=== PATIENT | male | born 1980 | race Hispanic/Latino ===

== ENCOUNTER 2019-07-21 03:40 | Inpatient (IN) | payer SELFPAY ==
[2019-07-21 04:48] LABS: Basophils # (Auto) 0.1 K/mm3 (0.0-0.1); Basophils % (Auto) 0.7 % (0.0-1.8); Eosinophils # (Auto) 0.1 K/mm3 (0.0-0.4); Eosinophils % (Auto) 0.5 % (0.0-4.3); Hematocrit 44.9 % (35.5-45.6); Hemoglobin 15.5 gm/dl (11.8-15.2); Lymphocytes # (Auto) 2.4 K/mm3 (1.2-5.4); Lymphocytes % (Auto) 20.5 % (13.4-35.0); Mean Corpuscular HGB Conc 35 % (32-34); Mean Corpuscular Volume 92 fl (84-94); Monocytes # (Auto) 0.9 K/mm3 (0.0-0.8); Monocytes % (Auto) 7.5 % (0.0-7.3); Platelet Count 398 K/mm3 (140-440); Red Blood Count 4.86 M/mm3 (3.65-5.03); Red Cell Distribution Width 13.6 % (13.2-15.2)
[2019-07-21 05:10] LABS: BUN/Creatinine Ratio 19; Blood Urea Nitrogen 13 mg/dL (9-20); Calcium 10.3 mg/dL (8.4-10.2); Hemolysis Index 9
[2019-07-21 05:17] LABS: Bilirubin,Urine NEG (Negative); Blood,Urine NEG (Negative); Color,Urine Amber (Yellow); Mucus,Urine 3+ /HPF; Urobilinogen,Urine < 2.0 mg/dL (<2.0)
[2019-07-21 06:07] LABS: Benzodiazepines Screen,Urine PRESUMPTIVE NEGATIVE; Cannabinoid Screen,Urine PRESUMPTIVE NEGATIVE; Cocaine Screen,Urine PRESUMPTIVE NEGATIVE; Methadone Screen,Urine PRESUMPTIVE NEGATIVE; Opiate Screen,Urine PRESUMPTIVE NEGATIVE
[2019-07-21 06:25] LABS: Amphetamine Screen,Urine PRESUMPTIVE POSITIVE
[2019-07-21] MEDS ORDERED: SODIUM CHLORIDE 0.9% 1000 ML 2,000 ML IV ONE (06:33)
[2019-07-21] MEDS ORDERED: SODIUM CHLORIDE 0.9% 1000 ML 1,000 ML IV ONE (06:33)
[2019-07-21] MEDS ORDERED: KETOROLAC 30 MG/1 ML INJ IV ONE (06:33)
--- NOTE | 2019-07-21 06:35 | Emergency Department Report ---
ED General Adult HPI - General Chief complaint: Psych Stated complaint: HEARING VOICES/MH EVAL Time Seen by Provider: 07/21/19 06:06 Source: patient, EMS (EMS documentation not available at this time.), RN notes reviewed Mode of arrival: Ambulatory Limitations: Other (patient disorganize and is a poor historian) - History of Present Illness Initial comments: This is a 39-year-old gentleman. This patient is not known to myself previously. His primary care doctor is not known, and his past medical history includes bipolar, schizophrenia, chronic back pain. He presents to the ER today with a complaint of command hallucinations to kill himself. He also has chronic lower back pain. He also endorses dark colored urine. He is not able to describe exacerbating or relieving factors at this time. There is no complaint of headache, neck pain, chest pain, abdominal pain, shortness of breath. He is not sure if he is expressing hematuria. He has no testicular pain. Not able to describe qualitative nature of symptoms, exacerbating or relieving factors. -: Gradual Location: back Quality: other Consistency: other Improves with: other Worsens with: other - Related Data Home Medications Medication Instructions Recorded Confirmed Last Taken No Known Home Medications [No 11/01/18 11/01/18 Unknown Reported Home Medications] Allergies Allergy/AdvReac Type Severity Reaction Status Date / Time No Known Allergies Allergy Unverified 10/31/18 00:16 ED Review of Systems ROS: Stated complaint: HEARING VOICES/MH EVAL Other details as noted in HPI Constitutional: denies: fever Eyes: denies: eye discharge ENT: denies: congestion Respiratory: denies: wheezing Cardiovascular: denies: syncope Gastrointestinal: denies: abdominal pain Genitourinary: denies: testicular pain Musculoskeletal: back pain Neurological: weakness Psychiatric: suicidal thoughts ED Past Medical Hx - Past Medical History Previous Medical History?: Yes Hx Psychiatric Treatment: Yes (Bipolar, schizophrenia) Additional medical history: CHRONIC BACK PAIN - Surgical History Past Surgical History?: Yes Additional Surgical History: LEFT KNEE X2 - Social History Smoking Status: Unknown if ever smoked Substance Use Type: Cocaine - Medications Home Medications: Home Medications Medication Instructions Recorded Confirmed Last Taken Type No Known Home Medications [No 11/01/18 11/01/18 Unknown History Reported Home Medications] ED Physical Exam - General Limitations: Other (patient psychotic, and is a poor historian) General appearance: alert, in no apparent distress - Head Head exam: Present: atraumatic, normocephalic - Eye Eye exam: Present: normal appearance, EOMI. Absent: nystagmus - ENT ENT exam: Present: normal exam, normal orophraynx, mucous membranes moist, normal external ear exam - Neck Neck exam: Present: normal inspection - Respiratory Respiratory exam: Present: normal lung sounds bilaterally. Absent: respiratory distress - Cardiovascular Cardiovascular Exam: Present: regular rate, normal rhythm, normal heart sounds. Absent: bradycardia, tachycardia, irregular rhythm, systolic murmur, diastolic murmur, rubs, gallop - GI/Abdominal GI/Abdominal exam: Present: soft. Absent: distended, tenderness, guarding, rebound, rigid, pulsatile mass - Rectal Rectal exam: Present: deferred - Extremities Exam Extremities exam: Present: normal inspection, full ROM, other (2+ pulses noted in the bilateral upper and lower extremities. There is no long bony tenderness. The pelvis is stable. The muscular compartments are soft. There is no palpable cord. There is no redness, pus or streaking.). Absent: pedal edema, calf tenderness - Back Exam Back exam: Present: normal inspection, full ROM, paraspinal tenderness. Absent: tenderness - Neurological Exam Neurological exam: Present: alert, other (there is no facial droop. Tongue is midline. Extraocular movements are intact bilaterally. Walking with a steady gait. Speaking in full sentences. Normal appropriate thought content. 5 out of 5 strength in 4 extremities. Sensation is intact to light touch in 4 extremities.). Absent: motor sensory deficit - Psychiatric Psychiatric exam: Present: flat affect, suicidal ideation - Skin Skin exam: Present: warm, dry, intact, normal color. Absent: rash ED Course Vital Signs 07/21/19 07/21/19 07/21/19 04:04 04:50 07:19 Temperature 98.7 F Pulse Rate 111 H Respiratory 18 20 18 Rate Blood Pressure 160/109 [Left] O2 Sat by Pulse 98 Oximetry ED Medical Decision Making - Lab Data Result diagrams: 07/21/19 04:09 07/21/19 04:09 Vital Signs 07/21/19 07/21/19 07/21/19 04:04 04:50 07:19 Temperature 98.7 F Pulse Rate 111 H Respiratory 18 20 18 Rate Blood Pressure 160/109 [Left] O2 Sat by Pulse 98 Oximetry Lab Results 07/21/19 07/21/19 07/21/19 Range/Units 04:05 04:05 04:09 WBC (4.5-11.0) K/mm3 RBC (3.65-5.03) M/mm3 Hgb (11.8-15.2) gm/dl Hct (35.5-45.6) % MCV (84-94) fl MCH (28-32) pg MCHC (32-34) % RDW (13.2-15.2) % Plt Count (140-440) K/mm3 Lymph % (Auto) (13.4-35.0) % [place] % (Auto) (0.0-7.3) % Eos % (Auto) (0.0-4.3) % Baso % (Auto) (0.0-1.8) % Lymph # (1.2-5.4) K/mm3 [place] # (0.0-0.8) K/mm3 Eos # (0.0-0.4) K/mm3 Baso # (0.0-0.1) K/mm3 Seg Neutrophils % (40.0-70.0) % Seg Neutrophils # (1.8-7.7) K/mm3 Sodium (137-145) mmol/L Potassium (3.6-5.0) mmol/L Chloride (98-107) mmol/L Carbon Dioxide (22-30) mmol/L Anion Gap mmol/L BUN (9-20) mg/dL Creatinine (0.8-1.5) mg/dL Estimated GFR ml/min BUN/Creatinine Ratio % Glucose (75-100) mg/dL Calcium (8.4-10.2) mg/dL Total Creatine Kinase (55-170) units/L Urine Color Ila (Yellow) Urine Turbidity Slightly-cloudy (Clear) Urine pH 6.0 (5.0-7.0) Ur Specific [place] 1.023 (1.003-1.030) Urine Protein 100 mg/dl (Negative) mg/dL Urine Glucose (UA) Neg (Negative) mg/dL Urine Ketones Tr (Negative) mg/dL Urine Blood Neg (Negative) Urine Nitrite Neg (Negative) Urine Bilirubin Neg (Negative) Urine Urobilinogen < 2.0 (<2.0) mg/dL Ur Leukocyte Esterase Neg (Negative) Urine WBC (Auto) 2.0 (0.0-6.0) /HPF Urine RBC (Auto) 13.0 (0.0-6.0) /HPF Urine Mucus 3+ /HPF Salicylates < 0.3 L (2.8-20.0) mg/dL Urine Opiates Screen Presumptive negative Urine Methadone Screen Presumptive negative Acetaminophen (10.0-30.0) ug/mL Ur Barbiturates Screen Presumptive negative Ur Phencyclidine Scrn Presumptive negative Ur Amphetamines Screen Presumptive positive U Benzodiazepines Scrn Presumptive negative [place] (0.0-1.2) mmol/L Urine Cocaine Screen Presumptive negative U Marijuana (THC) Screen Presumptive negative Drugs of Abuse Note Disclamer Plasma/Serum Alcohol (0-0.07) % 07/21/19 07/21/19 07/21/19 Range/Units 04:09 04:09 04:09 WBC (4.5-11.0) K/mm3 RBC (3.65-5.03) M/mm3 Hgb (11.8-15.2) gm/dl Hct (35.5-45.6) % MCV (84-94) fl MCH (28-32) pg MCHC (32-34) % RDW (13.2-15.2) % Plt Count (140-440) K/mm3 Lymph % (Auto) (13.4-35.0) % [place] % (Auto) (0.0-7.3) % Eos % (Auto) (0.0-4.3) % Baso % (Auto) (0.0-1.8) % Lymph # (1.2-5.4) K/mm3 [place] # (0.0-0.8) K/mm3 Eos # (0.0-0.4) K/mm3 Baso # (0.0-0.1) K/mm3 Seg Neutrophils % (40.0-70.0) % Seg Neutrophils # (1.8-7.7) K/mm3 Sodium 137 (137-145) mmol/L Potassium 3.7 (3.6-5.0) mmol/L Chloride 95.5 L (98-107) mmol/L Carbon Dioxide 20 L (22-30) mmol/L Anion Gap 25 mmol/L BUN 13 (9-20) mg/dL Creatinine 0.7 L (0.8-1.5) mg/dL Estimated GFR > 60 ml/min BUN/Creatinine Ratio 19 % Glucose 135 H (75-100) mg/dL Calcium 10.3 H (8.4-10.2) mg/dL Total Creatine Kinase (55-170) units/L Urine Color (Yellow) Urine Turbidity (Clear) Urine pH (5.0-7.0) Ur Specific [place] (1.003-1.030) Urine Protein (Negative) mg/dL Urine Glucose (UA) (Negative) mg/dL Urine Ketones (Negative) mg/dL Urine Blood (Negative) Urine Nitrite (Negative) Urine Bilirubin (Negative) Urine Urobilinogen (<2.0) mg/dL Ur Leukocyte Esterase (Negative) Urine WBC (Auto) (0.0-6.0) /HPF Urine RBC (Auto) (0.0-6.0) /HPF Urine Mucus /HPF Salicylates (2.8-20.0) mg/dL Urine Opiates Screen Urine Methadone Screen Acetaminophen < 5.0 L (10.0-30.0) ug/mL Ur Barbiturates Screen Ur Phencyclidine Scrn Ur Amphetamines Screen U Benzodiazepines Scrn [place] (0.0-1.2) mmol/L Urine Cocaine Screen U Marijuana (THC) Screen Drugs of Abuse Note Plasma/Serum Alcohol < 0.01 (0-0.07) % 07/21/19 07/21/19 07/21/19 Range/Units 04:09 04:09 04:30 WBC 11.8 H (4.5-11.0) K/mm3 RBC 4.86 (3.65-5.03) M/mm3 Hgb 15.5 H (11.8-15.2) gm/dl Hct 44.9 (35.5-45.6) % MCV 92 (84-94) fl MCH 32 (28-32) pg MCHC 35 H (32-34) % RDW 13.6 (13.2-15.2) % Plt Count 398 (140-440) K/mm3 Lymph % (Auto) 20.5 (13.4-35.0) % [place] % (Auto) 7.5 H (0.0-7.3) % Eos % (Auto) 0.5 (0.0-4.3) % Baso % (Auto) 0.7 (0.0-1.8) % Lymph # 2.4 (1.2-5.4) K/mm3 [place] # 0.9 H (0.0-0.8) K/mm3 Eos # 0.1 (0.0-0.4) K/mm3 Baso # 0.1 (0.0-0.1) K/mm3 Seg Neutrophils % 70.8 H (40.0-70.0) % Seg Neutrophils # 8.3 H (1.8-7.7) K/mm3 Sodium (137-145) mmol/L Potassium (3.6-5.0) mmol/L Chloride (98-107) mmol/L Carbon Dioxide (22-30) mmol/L Anion Gap mmol/L BUN (9-20) mg/dL Creatinine (0.8-1.5) mg/dL Estimated GFR ml/min BUN/Creatinine Ratio % Glucose (75-100) mg/dL Calcium (8.4-10.2) mg/dL Total Creatine Kinase 76399 H (55-170) units/L Urine Color (Yellow) Urine Turbidity (Clear) Urine pH (5.0-7.0) Ur Specific [place] (1.003-1.030) Urine Protein (Negative) mg/dL Urine Glucose (UA) (Negative) mg/dL Urine Ketones (Negative) mg/dL Urine Blood (Negative) Urine Nitrite (Negative) Urine Bilirubin (Negative) Urine Urobilinogen (<2.0) mg/dL Ur Leukocyte Esterase (Negative) Urine WBC (Auto) (0.0-6.0) /HPF Urine RBC (Auto) (0.0-6.0) /HPF Urine Mucus /HPF Salicylates (2.8-20.0) mg/dL Urine Opiates Screen Urine Methadone Screen Acetaminophen (10.0-30.0) ug/mL Ur Barbiturates Screen Ur Phencyclidine Scrn Ur Amphetamines Screen U Benzodiazepines Scrn [place] 0.1 (0.0-1.2) mmol/L Urine Cocaine Screen U Marijuana (THC) Screen Drugs of Abuse Note Plasma/Serum Alcohol (0-0.07) % - EKG Data -: EKG Interpreted by Md EKG shows normal: sinus rhythm Rate: normal - EKG Data 07/21/19 07:47 There is no prior EKG available for comparison. The EKG shows a normal sinus rhythm, 96 bpm, normal axis, QTC 446 ms, there is motion artifact, borderline atrial enlargement, no prior for comparison, not consistent with STEMI - Radiology Data Radiology results: report reviewed, image reviewed Print Report Referring Physician: RAVEN STAUFFER Patient Name: SURAJ IVAN Date of : 1980 Sex: Male Report Date: 2019-07-21 Report Status: Finalized Findings [facility] [address] [place] [address] Cat Scan Report Signed Patient: SURAJ IVAN MR#: [id number] : 1980 Acct:[id number] Age/Sex: 39 / M ADM Date: 07/21/19 Loc: ED Attending Dr: Ordering Physician: RAVEN STAUFFER MD Date of Service: 07/21/19 Procedure(s): CT abdomen pelvis wo con Accession Number(s): [id number] cc: RAVEN STAUFFER MD CT ABDOMEN AND PELVIS WITHOUT CONTRAST HISTORY: back pain hematuria, dark colored urine. COMPARISON: None. TECHNIQUE: CT images of the abdomen and pelvis were obtained without administration of intravenous contrast. All CT scans at this location are performed using CT dose reduction for ALARA by means of automated exposure control. FINDINGS: Lungs/bones: Lung bases are clear. No acute osseous abnormality. Mild degenerative changes in the spine and pelvis. Abdomen/pelvis: There is no radiopaque urinary stone disease in the kidneys. No mass, cyst, or hydronephrosis. The liver is enlarged and steatotic. The gallbladder, spleen, pancreas, adrenals, and proximal GI tract appear unremarkable. There is a tiny fat-containing umbilical hernia. Urinary bladder is incompletely distended but otherwise unremarkable. Prostate is normal. No pelvic free fluid. No acute colonic abnormality identified. The appendix is normal. IMPRESSION: 1. No acute abnormality identified. Signer Name: Kei Rutherford MD Signed: 07/21/2019 7:00 AM Workstation Name: [id number] Transcribed By: ALLEN Dictated By: Kei Rutherford MD Electronically Authenticated By: Kei Rutherford MD Signed Date/Time: 07/21/19 0700 - Medical Decision Making Differential diagnosis, including but not limited to: Medical clearance for psychiatric placement, psychosis, depression, renal colic, AAA, rhabdomyolysis Assessment and plan: 39-year-old gentleman with primary complaint of suicidality, wanting to kill himself. On review of systems endorses acute on chronic back pain, and dark colored urine. He is afebrile with reassuring vital signs. Physical exam is fairly unremarkable except as documented. A noncontrast CT scan of the abdomen and pelvis showed no acute surgical condition. Laboratory studies demonstrate metabolic acidosis, with rhabdomyolysis, CK of 10,700. Patient is not suitable to care for himself unsupervised, and meets criteria for hospitalization based off of the aforementioned CK, and metabolic acidosis. IV fluids, bicarbonate ordered, hold orders are initiated, psychiatric consultation requested, hospital physician, Dr. arciniega to admit patient for rhabdomyolysis, metabolic acidosis, and psychiatric consultation. Critical care attestation.: If time is entered above; I have spent that time in minutes in the direct care of this critically ill patient, excluding procedure time. ED Disposition Clinical Impression: Rhabdomyolysis, Metabolic acidosis, Suicidal ideation, Psychosis Disposition: 09 OP ADMIT IP TO THIS HOSP Is pt being admited?: Yes Does the pt Need Aspirin: No Condition: Good
[2019-07-21] MEDS ORDERED: LORazepam 2 MG/ML VIAL IV NR (06:45)
--- NOTE | 2019-07-21 07:05 | Cat Scan Report ---
CT ABDOMEN AND PELVIS WITHOUT CONTRAST HISTORY: back pain hematuria, dark colored urine. COMPARISON: None. TECHNIQUE: CT images of the abdomen and pelvis were obtained without administration of intravenous co ntrast. All CT scans at this location are performed using CT dose reduction for ALARA by means of au tomated exposure control. FINDINGS: Lungs/bones: Lung bases are clear. No acute osseous abnormality. Mild degenerative changes in the sp ine and pelvis. Abdomen/pelvis: There is no radiopaque urinary stone disease in the kidneys. No mass, cyst, or hydro nephrosis. The liver is enlarged and steatotic. The gallbladder, spleen, pancreas, adrenals, and proximal GI tra ct appear unremarkable. There is a tiny fat-containing umbilical hernia. Urinary bladder is incompletely distended but otherwise unremarkable. Prostate is normal. No pelvic f ree fluid. No acute colonic abnormality identified. The appendix is normal. IMPRESSION: 1. No acute abnormality identified. Signer Name: Kei Rutherford MD Signed: 07/21/2019 7:00 AM Workstation Name: [id number]
[2019-07-21] MEDS ORDERED: SODIUM BICARB 8.4% 50 MEQ/50 ML SYRINGE IV ONE (07:45)
--- NOTE | 2019-07-21 13:33 | History and Physical Report ---
History of Present Illness Date of examination: 07/21/19 Chief complaint: Suicidal thoughts History of present illness: Patient is a 39 yo man with a history of bipolar and shizophrenia who presented to [facility] ED from home with auditory hallucinations telling himself to hurt himself. He told ED staff that he has been off his psychiatry medications for unknown amount of time and he admits to doing speed. He was anxious and was given IV ativan, now somnolent and gives no history to me. He is being admitted for Rhabdomyolysis. PMH: as hpi PSH: knee surgery SH: +tob no Etoh +illicit drugs FH: he denies ROS: unable to obtain due AMS Gen: WDWN, NAD, Awake, Alert, Orientated HEENT: NCAT, EOMI, PERRL, OP Clear Neck: supple, no adenopathy, no thyromegaly, no JVD CVS/Heart: RRR, normal S1S2, pulses present bilaterally Chest/Lungs: CTA B, Symmetrical chest expansion, good air entry bilaterally GI/Abdomen: soft, NTND, good bowel sounds, no guarding or rebound /Bladder: no suprapubic tenderness, no CVA or paraspinal tenderness Extermity/Skin: no c/c/e, no obvious rash MSK: FROM x 4 Neuro: CN 2-12 grossly intact, no new focal deficits Psych: calm Medications and Allergies Allergies Allergy/AdvReac Type Severity Reaction Status Date / Time No Known Allergies Allergy Unverified 10/31/18 00:16 Home Medications Medication Instructions Recorded Confirmed Last Taken Type No Known Home Medications [No 11/01/18 11/01/18 Unknown History Reported Home Medications] Active Meds: Active Medications Lorazepam (Ativan) 2 mg IV CARDIAC RN NR Stop: 07/21/19 23:59 Last Admin: 07/21/19 07:26 Dose: 2 mg Documented by: Exam - Constitutional Vitals: Temp Pulse Resp BP Pulse Ox 97.9 F 99 H 18 154/101 95 07/21/19 10:12 07/21/19 10:12 07/21/19 10:12 07/21/19 10:12 07/21/19 10:12 Results - Labs CBC & Chem 7: 07/21/19 04:09 07/21/19 04:09 Labs: Laboratory Last Values WBC 11.8 K/mm3 (4.5-11.0) H 07/21/19 04:09 RBC 4.86 M/mm3 (3.65-5.03) 07/21/19 04:09 Hgb 15.5 gm/dl (11.8-15.2) H 07/21/19 04:09 Hct 44.9 % (35.5-45.6) 07/21/19 04:09 MCV 92 fl (84-94) 07/21/19 04:09 MCH 32 pg (28-32) 07/21/19 04:09 MCHC 35 % (32-34) H 07/21/19 04:09 RDW 13.6 % (13.2-15.2) 07/21/19 04:09 Plt Count 398 K/mm3 (140-440) 07/21/19 04:09 Lymph % (Auto) 20.5 % (13.4-35.0) 07/21/19 04:09 [place] % (Auto) 7.5 % (0.0-7.3) H 07/21/19 04:09 Eos % (Auto) 0.5 % (0.0-4.3) 07/21/19 04:09 Baso % (Auto) 0.7 % (0.0-1.8) 07/21/19 04:09 Lymph # 2.4 K/mm3 (1.2-5.4) 07/21/19 04:09 [place] # 0.9 K/mm3 (0.0-0.8) H 07/21/19 04:09 Eos # 0.1 K/mm3 (0.0-0.4) 07/21/19 04:09 Baso # 0.1 K/mm3 (0.0-0.1) 07/21/19 04:09 Seg Neutrophils % 70.8 % (40.0-70.0) H 07/21/19 04:09 Seg Neutrophils # 8.3 K/mm3 (1.8-7.7) H 07/21/19 04:09 Sodium 137 mmol/L (137-145) 07/21/19 04:09 Potassium 3.7 mmol/L (3.6-5.0) 07/21/19 04:09 Chloride 95.5 mmol/L (98-107) L 07/21/19 04:09 Carbon Dioxide 20 mmol/L (22-30) L 07/21/19 04:09 Anion Gap 25 mmol/L 07/21/19 04:09 BUN 13 mg/dL (9-20) 07/21/19 04:09 Creatinine 0.7 mg/dL (0.8-1.5) L 07/21/19 04:09 Estimated GFR > 60 ml/min 07/21/19 04:09 BUN/Creatinine Ratio 19 % 07/21/19 04:09 Glucose 135 mg/dL (75-100) H 07/21/19 04:09 Calcium 10.3 mg/dL (8.4-10.2) H 07/21/19 04:09 Total Creatine Kinase 79392 units/L (55-170) H 07/21/19 04:09 Urine Color Ila (Yellow) 07/21/19 04:05 Urine Turbidity Slightly-cloudy (Clear) 07/21/19 04:05 Urine pH 6.0 (5.0-7.0) 07/21/19 04:05 Ur Specific [place] 1.023 (1.003-1.030) 07/21/19 04:05 Urine Protein 100 mg/dl mg/dL (Negative) 07/21/19 04:05 Urine Glucose (UA) Neg mg/dL (Negative) 07/21/19 04:05 Urine Ketones Tr mg/dL (Negative) 07/21/19 04:05 Urine Blood Neg (Negative) 07/21/19 04:05 Urine Nitrite Neg (Negative) 07/21/19 04:05 Urine Bilirubin Neg (Negative) 07/21/19 04:05 Urine Urobilinogen < 2.0 mg/dL (<2.0) 07/21/19 04:05 Ur Leukocyte Esterase Neg (Negative) 07/21/19 04:05 Urine WBC (Auto) 2.0 /HPF (0.0-6.0) 07/21/19 04:05 Urine RBC (Auto) 13.0 /HPF (0.0-6.0) 07/21/19 04:05 Urine Mucus 3+ /HPF 07/21/19 04:05 Salicylates < 0.3 mg/dL (2.8-20.0) L 07/21/19 04:09 Urine Opiates Screen Presumptive negative 07/21/19 04:05 Urine Methadone Screen Presumptive negative 07/21/19 04:05 Acetaminophen < 5.0 ug/mL (10.0-30.0) L 07/21/19 04:09 Ur Barbiturates Screen Presumptive negative 07/21/19 04:05 Ur Phencyclidine Scrn Presumptive negative 07/21/19 04:05 Ur Amphetamines Screen Presumptive positive 07/21/19 04:05 U Benzodiazepines Scrn Presumptive negative 07/21/19 04:05 [place] 0.1 mmol/L (0.0-1.2) 07/21/19 04:30 Urine Cocaine Screen Presumptive negative 07/21/19 04:05 U Marijuana (THC) Screen Presumptive negative 07/21/19 04:05 Drugs of Abuse Note Disclamer 07/21/19 04:05 Plasma/Serum Alcohol < 0.01 % (0-0.07) 07/21/19 04:09 Assessment and Plan Assessment and plan: Patient is a 39 yo man with a history of bipolar and shizophrenia who presented to [facility] ED from home with auditory hallucinations telling himself to hurt himself. He told ED staff that he has been off his psychiatry medications for unknown amount of time and he admits to doing speed. He was anxious and was given IV ativan, now somnolent and gives no history to me. He is being admitted for Rhabdomyolysis. * HR 111 bp 160/109, wbc 11.8, Ca 10.3, CPK 10,733 * UA not indicative of UTI, UDS is positive for Amphetamines * CT abd/pelvis without contrast IMPRESSION: 1. No acute abnormality identified. Rhabdomyolysis: treat with Isotonic IVFs, do serical cpk levels Acute psychosis: consult Mental health, treat with antipsychotics Suicidal Ideation: spoke with Dr. Morales, patient did express Suicidal thoughts to him but he did not 1013 patient instead he ordered ER hold and consulted Mental health Acute toxic encephalopathy due to Methamphetamines Schizophrenia: consult mental health DVT ppx sq heparin
[2019-07-21] MEDS ORDERED: ONDANSETRON 4 MG/2 ML INJ IV PRN (13:35)
[2019-07-21] MEDS ORDERED: HALOPERIDOL LACTATE 5 MG/1 ML INJ IM PRN (13:45)
[2019-07-21] MEDS ORDERED: HALOPERIDOL LACTATE 5 MG/1 ML INJ IV PRN (13:50)
[2019-07-21] MEDS ORDERED: LORazepam 2 MG/ML VIAL IV PRN (13:51)
[2019-07-21] MEDS ORDERED: QUEtiapine 200 MG TAB ONE (14:20)
[2019-07-21] MEDS: QUEtiapine 200 MG TAB PO SCH ×2 (14:21→22:59)
[2019-07-21] MEDS ORDERED: ACETAMINOPHEN 325 MG TAB ONE (14:28)
[2019-07-21] MEDS: ACETAMINOPHEN 325 MG TAB PO PRN (14:28)
[2019-07-21] MEDS: SODIUM CHLORIDE 0.9% 1000 ML 1,000 ML IV SCH (17:13)
[2019-07-22 08:19] LABS: Hematocrit 38.3 % (35.5-45.6); Mean Corpuscular HGB Conc 34 % (32-34); Mean Corpuscular Volume 93 fl (84-94); Platelet Count 332 K/mm3 (140-440); Red Blood Count 4.13 M/mm3 (3.65-5.03); Red Cell Distribution Width 13.7 % (13.2-15.2)
[2019-07-22 09:21] LABS: Alanine Aminotransferase 102 units/L (7-56); Albumin 3.5 g/dL (3.9-5); BUN/Creatinine Ratio 20; Blood Urea Nitrogen 14 mg/dL (9-20); Calcium 8.9 mg/dL (8.4-10.2); Hemolysis Index 2
[2019-07-22] MEDS: QUEtiapine 200 MG TAB PO SCH ×2 (10:37→23:06)
[2019-07-22] MEDS ORDERED: POTASSIUM CHLORIDE ER 20 MEQ TAB PO ONE ×2 (12:00→16:00)
--- NOTE | 2019-07-22 12:35 | Consultation ---
History of Present Illness - Reason for Consult Consult date: 07/22/19 Reason for consult: command SI - Chief Complaint Chief complaint: Suicidal thoughts - History of Present Psychiatric Illness Isael Lizarraga is a 39y/o male patient who is said to have come in to the hospital for command hallucinations to kill himself. During my attempted interview today, he is lying in bed. Asleep. The patient arouses minimally during interview and is unable to adequately answer questioning. The sitter at bedside attempts to awaken the patient as well but he does not respond. She says she thinks they gave him something. Will attempt interview tomorrow. PAST PSYCHIATRIC HISTORY: Unable to assess PAST MEDICAL HISTORY: Unable to assess Family Psychiatric History Unable to assess SOCIAL HISTORY Unable to assess REVIEW OF SYSTEMS Unable to assess MSE Appearance: Dressed appropriately. Unable to assess Assessment: Schizoaffective Disorder Plan Can continue Seroquel 200mg po BID Prozac 10mg po daily Doxepin 10mg po qhs Melatonin 5mg po qhs prn insomnia Sitter: Defer to primary Medical: Per primary Disposition: TBD. Will reassess the patient's mental status tomorrow. Will continue to follow Medications and Allergies Allergies Allergy/AdvReac Type Severity Reaction Status Date / Time No Known Allergies Allergy Unverified 10/31/18 00:16 Home Medications Medication Instructions Recorded Confirmed Last Taken Type No Known Home Medications [No 11/01/18 11/01/18 Unknown History Reported Home Medications] Active Meds: Active Medications Acetaminophen (Tylenol) 650 mg PO Q6H PRN PRN Reason: Non Cardiac Pain or Temp>100.5 Last Admin: 07/21/19 14:28 Dose: 650 mg Documented by: Haloperidol Lactate (Haldol) 5 mg IV Q6H PRN PRN Reason: Agitation Heparin Sodium (Porcine) (Heparin) 5,000 unit SUB-Q Q12HR CELESTE Sodium Chloride (Nacl 0.9% 1000 Ml) 1,000 mls @ 125 mls/hr IV DIRECT CELESTE Last Admin: 07/21/19 17:13 Dose: 125 mls/hr Documented by: Lorazepam (Ativan) 2 mg IV ONCE PRN PRN Reason: Anxiety Ondansetron HCl (Zofran) 4 mg IV Q4H PRN PRN Reason: Nausea And Vomiting Quetiapine Fumarate (Seroquel) 200 mg PO BID CELESTE Last Admin: 07/22/19 10:37 Dose: 200 mg Documented by: Mental Status Exam - Vital signs Last Vital Signs Temp 97.9 F 07/22/19 06:48 Pulse 80 07/22/19 06:48 Resp 16 07/22/19 06:48 BP 133/84 07/22/19 06:48 Pulse Ox 94 07/22/19 06:48 Results Result Diagrams: 07/22/19 07:24 07/22/19 07:24 Abnormal lab results 07/22/19 Range/Units 07:24 Potassium 3.2 L (3.6-5.0) mmol/L Carbon Dioxide 21 L (22-30) mmol/L Creatinine 0.7 L (0.8-1.5) mg/dL Glucose 142 H (75-100) mg/dL AST 91 H (5-40) units/L ALT 102 H (7-56) units/L Total Creatine Kinase 2811 H (55-170) units/L Total Protein 5.9 L (6.3-8.2) g/dL Albumin 3.5 L (3.9-5) g/dL All other labs normal.
--- NOTE | 2019-07-22 14:51 | Progress Note ---
Assessment and Plan Assessment and plan: Patient is a 39 yo man with a history of bipolar and shizophrenia who presented to [facility] ED from home with auditory hallucinations telling himself to hurt himself. He told ED staff that he has been off his psychiatry medications for unknown amount of time and he admits to doing speed. He was anxious and was given IV ativan, now somnolent and gives no history to me. He is being admitted for Rhabdomyolysis. * Elevated CK * UA not indicative of UTI, UDS is positive for Amphetamines * CT abd/pelvis without contrast IMPRESSION: 1. No acute abnormality identified. Rhabdomyolysis: treat with Isotonic IVFs, do serical cpk levels Acute psychosis: consult Mental health, treat with antipsychotics Suicidal Ideation: per Dr. Morales, patient did express Suicidal thoughts to him but he did not 1013 patient instead he ordered ER hold and consulted Mental health Acute toxic encephalopathy due to Methamphetamines, improving Schizophrenia: consult mental health Hypokalemia; repleted DVT ppx sq heparin History Interval history: Patient received medications for agitation and has since been somnolent Review of systems Constitutional: No fevers, no malaise, no joint pains CVS: No chest pain, no orthopnea, no pedal edema GI: No abdominal pain, no diarrhea, no vomiting, no constipation Respiratory: , no wheezing, no coughing Hospitalist Physical - Physical exam Narrative exam: General.: Appears well, no distress, nontoxic HEENT: Moist mucous membranes, extraocular muscles intact, no lymphadenopathy Neck: supple Cardiac: S1-S2 heard Lungs: clear to auscultation bilaterally Abdomen: soft , nontender, nondistended, bowel sounds positive Extremities: no edema clubbing or cyanosis Skin: no rash or lesions Neurologic: Somnolent Psych: Somnolent - Constitutional Vitals: Temp Pulse Resp BP Pulse Ox 97.9 F 80 16 133/84 94 07/22/19 06:48 07/22/19 06:48 07/22/19 06:48 07/22/19 06:48 07/22/19 06:48 Results - Labs CBC & Chem 7: 07/23/19 04:24 07/23/19 04:24 Labs: Laboratory Last Values WBC 7.4 K/mm3 (4.5-11.0) 07/22/19 07:24 RBC 4.13 M/mm3 (3.65-5.03) 07/22/19 07:24 Hgb 13.0 gm/dl (11.8-15.2) 07/22/19 07:24 Hct 38.3 % (35.5-45.6) D 07/22/19 07:24 MCV 93 fl (84-94) 07/22/19 07:24 MCH 32 pg (28-32) 07/22/19 07:24 MCHC 34 % (32-34) 07/22/19 07:24 RDW 13.7 % (13.2-15.2) 07/22/19 07:24 Plt Count 332 K/mm3 (140-440) 07/22/19 07:24 Lymph % (Auto) 20.5 % (13.4-35.0) 07/21/19 04:09 [place] % (Auto) 7.5 % (0.0-7.3) H 07/21/19 04:09 Eos % (Auto) 0.5 % (0.0-4.3) 07/21/19 04:09 Baso % (Auto) 0.7 % (0.0-1.8) 07/21/19 04:09 Lymph # 2.4 K/mm3 (1.2-5.4) 07/21/19 04:09 [place] # 0.9 K/mm3 (0.0-0.8) H 07/21/19 04:09 Eos # 0.1 K/mm3 (0.0-0.4) 07/21/19 04:09 Baso # 0.1 K/mm3 (0.0-0.1) 07/21/19 04:09 Seg Neutrophils % 70.8 % (40.0-70.0) H 07/21/19 04:09 Seg Neutrophils # 8.3 K/mm3 (1.8-7.7) H 07/21/19 04:09 Sodium 142 mmol/L (137-145) 07/22/19 07:24 Potassium 3.2 mmol/L (3.6-5.0) L 07/22/19 07:24 Chloride 106.1 mmol/L (98-107) 07/22/19 07:24 Carbon Dioxide 21 mmol/L (22-30) L 07/22/19 07:24 Anion Gap 18 mmol/L 07/22/19 07:24 BUN 14 mg/dL (9-20) 07/22/19 07:24 Creatinine 0.7 mg/dL (0.8-1.5) L 07/22/19 07:24 Estimated GFR > 60 ml/min 07/22/19 07:24 BUN/Creatinine Ratio 20 % 07/22/19 07:24 Glucose 142 mg/dL (75-100) H 07/22/19 07:24 Calcium 8.9 mg/dL (8.4-10.2) 07/22/19 07:24 Total Bilirubin 0.40 mg/dL (0.1-1.2) 07/22/19 07:24 AST 91 units/L (5-40) H 07/22/19 07:24 ALT 102 units/L (7-56) H 07/22/19 07:24 Alkaline Phosphatase 64 units/L (35-129) 07/22/19 07:24 Total Creatine Kinase 2811 units/L (55-170) H 07/22/19 07:24 Total Protein 5.9 g/dL (6.3-8.2) L 07/22/19 07:24 Albumin 3.5 g/dL (3.9-5) L 07/22/19 07:24 Albumin/Globulin Ratio 1.5 % 07/22/19 07:24 Urine Color [place]la (Yellow) 07/21/19 04:05 Urine Turbidity Slightly-cloudy (Clear) 07/21/19 04:05 Urine pH 6.0 (5.0-7.0) 07/21/19 04:05 Ur Specific [place] 1.023 (1.003-1.030) 07/21/19 04:05 Urine Protein 100 mg/dl mg/dL (Negative) 07/21/19 04:05 Urine Glucose (UA) Neg mg/dL (Negative) 07/21/19 04:05 Urine Ketones Tr mg/dL (Negative) 07/21/19 04:05 Urine Blood Neg (Negative) 07/21/19 04:05 Urine Nitrite Neg (Negative) 07/21/19 04:05 Urine Bilirubin Neg (Negative) 07/21/19 04:05 Urine Urobilinogen < 2.0 mg/dL (<2.0) 07/21/19 04:05 Ur Leukocyte Esterase Neg (Negative) 07/21/19 04:05 Urine WBC (Auto) 2.0 /HPF (0.0-6.0) 07/21/19 04:05 Urine RBC (Auto) 13.0 /HPF (0.0-6.0) 07/21/19 04:05 Urine Mucus 3+ /HPF 07/21/19 04:05 Salicylates < 0.3 mg/dL (2.8-20.0) L 07/21/19 04:09 Urine Opiates Screen Presumptive negative 07/21/19 04:05 Urine Methadone Screen Presumptive negative 07/21/19 04:05 Acetaminophen < 5.0 ug/mL (10.0-30.0) L 07/21/19 04:09 Ur Barbiturates Screen Presumptive negative 07/21/19 04:05 Ur Phencyclidine Scrn Presumptive negative 07/21/19 04:05 Ur Amphetamines Screen Presumptive positive 07/21/19 04:05 U Benzodiazepines Scrn Presumptive negative 07/21/19 04:05 [place] 0.1 mmol/L (0.0-1.2) 07/21/19 04:30 Urine Cocaine Screen Presumptive negative 07/21/19 04:05 U Marijuana (THC) Screen Presumptive negative 07/21/19 04:05 Drugs of Abuse Note Disclamer 07/21/19 04:05 Plasma/Serum Alcohol < 0.01 % (0-0.07) 07/21/19 04:09 Active Medications - Current Medications Current Medications: Generic Name Dose Route Start Last Admin Trade Name Freq PRN Reason Stop Dose Admin Acetaminophen 650 mg 07/21/19 13:35 07/21/19 14:28 Tylenol PO 650 mg Q6H PRN Administration Non Cardiac Pain or Temp>100.5 Doxepin HCl 10 mg 07/22/19 22:00 [place] PO QHS CELESTE Fluoxetine HCl 10 mg 07/22/19 14:00 Prozac PO QDAY CELESTE Haloperidol Lactate 5 mg 07/21/19 13:50 Haldol IV Q6H PRN Agitation Heparin Sodium (Porcine) 5,000 unit 07/22/19 22:00 Heparin SUB-Q Q12HR CELESTE Sodium Chloride 1,000 mls @ 125 mls/hr 07/21/19 13:45 02/03/20 17:13 Nacl 0.9% 1000 Ml IV 125 mls/hr DIRECT CELESTE Administration Lorazepam 2 mg 07/21/19 13:51 Ativan IV ONCE PRN Anxiety Melatonin 5 mg 07/22/19 22:00 Melatonin PO QHS PRN Sleep Ondansetron HCl 4 mg 07/21/19 13:35 Zofran IV Q4H PRN Nausea And Vomiting Quetiapine Fumarate 200 mg 07/21/19 14:00 07/22/19 10:37 Seroquel PO 200 mg BID CELESTE Administration
[2019-07-22] MEDS: FLUoxetine 10 MG TAB PO SCH (15:13)
[2019-07-22] MEDS ORDERED: DOXEPIN 10 MG CAP PO PRN (16:41)
[2019-07-22] MEDS ORDERED: LORazepam 2 MG/ML VIAL IV PRN (16:41)
[2019-07-22] MEDS ORDERED: DOXEPIN 10 MG CAP PO SCH (22:00)
[2019-07-22] MEDS ORDERED: MELATONIN 5 MG TAB PO PRN (22:00)
[2019-07-22] MEDS: HEPARIN 5,000 UNIT/1 ML VIAL SUB-Q SCH (23:06)
[2019-07-22] MEDS: ACETAMINOPHEN 325 MG TAB PO PRN (23:18)
[2019-07-23 04:50] LABS: Basophils % (Auto) 0.6 % (0.0-1.8); Eosinophils # (Auto) 0.1 K/mm3 (0.0-0.4); Eosinophils % (Auto) 1.9 % (0.0-4.3); Hematocrit 39.5 % (35.5-45.6); Hemoglobin 13.5 gm/dl (11.8-15.2); Lymphocytes # (Auto) 2.5 K/mm3 (1.2-5.4); Mean Corpuscular HGB Conc 34 % (32-34); Mean Corpuscular Volume 93 fl (84-94); Monocytes # (Auto) 0.4 K/mm3 (0.0-0.8); Monocytes % (Auto) 5.8 % (0.0-7.3); Platelet Count 369 K/mm3 (140-440); Red Blood Count 4.27 M/mm3 (3.65-5.03); Red Cell Distribution Width 13.3 % (13.2-15.2)
[2019-07-23 05:16] LABS: BUN/Creatinine Ratio 18; Blood Urea Nitrogen 11 mg/dL (9-20); Calcium 9.1 mg/dL (8.4-10.2); Hemolysis Index 4
[2019-07-23] MEDS: FLUoxetine 10 MG TAB PO SCH (09:31)
[2019-07-23] MEDS: HEPARIN 5,000 UNIT/1 ML VIAL SUB-Q SCH ×2 (09:31→21:01)
--- NOTE | 2019-07-23 09:42 | Progress Note ---
Assessment and Plan Assessment and plan: Patient is a 39 yo man with a history of bipolar and shizophrenia who presented to [facility] ED from home with auditory hallucinations telling himself to hurt himself. He told ED staff that he has been off his psychiatry medications for unknown amount of time and he admits to doing speed. He was anxious and was given IV ativan, now somnolent and gives no history to me. He is being admitted for Rhabdomyolysis. * Elevated CK * UA not indicative of UTI, UDS is positive for Amphetamines * CT abd/pelvis without contrast IMPRESSION: 1. No acute abnormality identified. Rhabdomyolysis: treat with Isotonic IVFs, do serical cpk levels Acute psychosis/schizoaffective disorder: Antipsychotic meds per mental health. Suicidal Ideation: per Dr. Morales, patient did express Suicidal thoughts to him but he did not 1013 patient instead he ordered ER hold and consulted Mental health Acute toxic encephalopathy due to Methamphetamines, improving Schizophrenia: consult mental health Hypokalemia; repleted and resolved DVT ppx sq heparin Patient is medically optimized for transfer to psychiatric facility versus discharge home. Psychiatry to assist with discharge planning. History Interval history: Review of systems Constitutional: No fevers, no malaise, no joint pains CVS: No chest pain, no orthopnea, no pedal edema GI: No abdominal pain, no diarrhea, no vomiting, no constipation Respiratory: , no wheezing, no coughing Hospitalist Physical - Physical exam Narrative exam: General.: Appears well, no distress, nontoxic HEENT: Moist mucous membranes, extraocular muscles intact, no lymphadenopathy Neck: supple Cardiac: S1-S2 heard Lungs: clear to auscultation bilaterally Abdomen: soft , nontender, nondistended, bowel sounds positive Extremities: no edema clubbing or cyanosis Skin: no rash or lesions Neurologic: no gross focal deficits Psych: calm, and cooperative - Constitutional Vitals: Temp Pulse Resp BP Pulse Ox 97.4 F L 89 18 116/68 96 07/22/19 23:28 07/22/19 23:28 07/22/19 23:28 07/22/19 23:28 07/22/19 23:28 Results - Labs CBC & Chem 7: 07/23/19 04:24 07/23/19 04:24 Labs: Laboratory Last Values WBC 6.6 K/mm3 (4.5-11.0) 07/23/19 04:24 RBC 4.27 M/mm3 (3.65-5.03) 07/23/19 04:24 Hgb 13.5 gm/dl (11.8-15.2) 07/23/19 04:24 Hct 39.5 % (35.5-45.6) 07/23/19 04:24 MCV 93 fl (84-94) 07/23/19 04:24 MCH 32 pg (28-32) 07/23/19 04:24 MCHC 34 % (32-34) 07/23/19 04:24 RDW 13.3 % (13.2-15.2) 07/23/19 04:24 Plt Count 369 K/mm3 (140-440) 07/23/19 04:24 Lymph % (Auto) 38.0 % (13.4-35.0) H 07/23/19 04:24 [place] % (Auto) 5.8 % (0.0-7.3) 07/23/19 04:24 Eos % (Auto) 1.9 % (0.0-4.3) 07/23/19 04:24 Baso % (Auto) 0.6 % (0.0-1.8) 07/23/19 04:24 Lymph # 2.5 K/mm3 (1.2-5.4) 07/23/19 04:24 [place] # 0.4 K/mm3 (0.0-0.8) 07/23/19 04:24 Eos # 0.1 K/mm3 (0.0-0.4) 07/23/19 04:24 Baso # 0.0 K/mm3 (0.0-0.1) 07/23/19 04:24 Seg Neutrophils % 53.7 % (40.0-70.0) 07/23/19 04:24 Seg Neutrophils # 3.5 K/mm3 (1.8-7.7) 07/23/19 04:24 Sodium 144 mmol/L (137-145) 07/23/19 04:24 Potassium 3.9 mmol/L (3.6-5.0) D 07/23/19 04:24 Chloride 107.6 mmol/L (98-107) H 07/23/19 04:24 Carbon Dioxide 24 mmol/L (22-30) 07/23/19 04:24 Anion Gap 16 mmol/L 07/23/19 04:24 BUN 11 mg/dL (9-20) 07/23/19 04:24 Creatinine 0.6 mg/dL (0.8-1.5) L 07/23/19 04:24 Estimated GFR > 60 ml/min 07/23/19 04:24 BUN/Creatinine Ratio 18 % 07/23/19 04:24 Glucose 100 mg/dL (75-100) 07/23/19 04:24 Calcium 9.1 mg/dL (8.4-10.2) 07/23/19 04:24 Total Bilirubin 0.40 mg/dL (0.1-1.2) 07/22/19 07:24 AST 91 units/L (5-40) H 07/22/19 07:24 ALT 102 units/L (7-56) H 07/22/19 07:24 Alkaline Phosphatase 64 units/L (35-129) 07/22/19 07:24 Total Creatine Kinase 1235 units/L (55-170) H 07/23/19 04:24 Total Protein 5.9 g/dL (6.3-8.2) L 07/22/19 07:24 Albumin 3.5 g/dL (3.9-5) L 07/22/19 07:24 Albumin/Globulin Ratio 1.5 % 07/22/19 07:24 Urine Color Ila (Yellow) 07/21/19 04:05 Urine Turbidity Slightly-cloudy (Clear) 07/21/19 04:05 Urine pH 6.0 (5.0-7.0) 07/21/19 04:05 Ur Specific [place] 1.023 (1.003-1.030) 07/21/19 04:05 Urine Protein 100 mg/dl mg/dL (Negative) 07/21/19 04:05 Urine Glucose (UA) Neg mg/dL (Negative) 07/21/19 04:05 Urine Ketones Tr mg/dL (Negative) 07/21/19 04:05 Urine Blood Neg (Negative) 07/21/19 04:05 Urine Nitrite Neg (Negative) 07/21/19 04:05 Urine Bilirubin Neg (Negative) 07/21/19 04:05 Urine Urobilinogen < 2.0 mg/dL (<2.0) 07/21/19 04:05 Ur Leukocyte Esterase Neg (Negative) 07/21/19 04:05 Urine WBC (Auto) 2.0 /HPF (0.0-6.0) 07/21/19 04:05 Urine RBC (Auto) 13.0 /HPF (0.0-6.0) 07/21/19 04:05 Urine Mucus 3+ /HPF 07/21/19 04:05 Salicylates < 0.3 mg/dL (2.8-20.0) L 07/21/19 04:09 Urine Opiates Screen Presumptive negative 07/21/19 04:05 Urine Methadone Screen Presumptive negative 07/21/19 04:05 Acetaminophen < 5.0 ug/mL (10.0-30.0) L 07/21/19 04:09 Ur Barbiturates Screen Presumptive negative 07/21/19 04:05 Ur Phencyclidine Scrn Presumptive negative 07/21/19 04:05 Ur Amphetamines Screen Presumptive positive 07/21/19 04:05 U Benzodiazepines Scrn Presumptive negative 07/21/19 04:05 [place] 0.1 mmol/L (0.0-1.2) 07/21/19 04:30 Urine Cocaine Screen Presumptive negative 07/21/19 04:05 U Marijuana (THC) Screen Presumptive negative 07/21/19 04:05 Drugs of Abuse Note Disclamer 07/21/19 04:05 Plasma/Serum Alcohol < 0.01 % (0-0.07) 07/21/19 04:09 Active Medications - Current Medications Current Medications: Generic Name Dose Route Start Last Admin Trade Name Freq PRN Reason Stop Dose Admin Acetaminophen 650 mg 07/21/19 13:35 07/22/19 23:18 Tylenol PO 650 mg Q6H PRN Administration Non Cardiac Pain or Temp>100.5 Doxepin HCl 10 mg 07/22/19 16:41 [place] PO QHS PRN Insomnia Fluoxetine HCl 10 mg 07/22/19 14:00 07/23/19 09:31 Prozac PO 10 mg QDAY CELESTE Administration Haloperidol Lactate 5 mg 07/21/19 13:50 07/22/19 23:06 Haldol IV 5 mg Q6H PRN Administration Agitation Heparin Sodium (Porcine) 5,000 unit 07/22/19 22:00 07/23/19 09:31 Heparin SUB-Q 5,000 unit Q12HR CELESTE Administration Sodium Chloride 1,000 mls @ 125 mls/hr 07/21/19 13:45 07/21/19 17:13 Nacl 0.9% 1000 Ml IV 125 mls/hr DIRECT CELESTE Administration Lorazepam 1 mg 07/22/19 16:41 Ativan IV Q6H PRN Agitation Melatonin 5 mg 07/22/19 22:00 07/22/19 23:06 Melatonin PO 5 mg QHS PRN Administration Sleep Ondansetron HCl 4 mg 07/21/19 13:35 Zofran IV Q4H PRN Nausea And Vomiting Quetiapine Fumarate 200 mg 07/22/19 22:00 07/22/19 23:06 Seroquel PO 200 mg QHS CELESTE Administration
--- NOTE | 2019-07-23 13:53 | Progress Note ---
Subjective - Reason for Consult Consult date: 07/23/19 Reason for consult: psychiatric assessment - Chief Complaint Chief complaint: In my interview with the patient this morning, the patient in bed with eyes closed,easily aroused, patient is alert and oriented 2, the patient maintained minimal eye contact. The patient denies suicidal or homicidal ideation. Patient denies visual or auditory hallucinations. The patient reported that he is eating and sleeping well. The patient denies depressive symptoms. The patient appear drowsy and was just answering the questions randomly without thinking. when continuing to ask questions the patient turn over on his abdomen and just mumbles. The patient isn't focus and appears just answering the questions so I could leave. Review of Symptoms: Constitutional: Negative for weight loss ENT: Negative for stridor Respiratory: Negative for cough or hemoptysis All other systems reviewed and are negative MSE Appearance: Wearing appropriate clothing. Good hygiene Behavior: Pleasant and cooperative. Mood: "ok" Affect: irritable Thought Process: Goal directed Speech: low Thought Content Harmfulness Denies SI/HI Hallucinations: patient denies Delusions: none elicited Consciousness: alert. Cognition/Memory: normal. Insight/Judgment: Limited. RECOMMENDATIONS MEDICATIONS: continue current psychiatric medication Risks, benefits and alternatives of medications discussed with the patient, questions answered and consent obtained from patient. PSYCHOTHERAPY: Supportive psychotherapy provided MEDICAL: Per primary team DELIRIUM PRECAUTIONS: Please re-orient patient frequently, keep lights on during the day, and minimize benzodiazepines and opiates as these medications could worsen patient's confusion. PEGGER: DISPOSITION: unable to assess the patient fully although he answer most of the question denying SI/HI, depression and AVH, he remains drowsy, will assess fully when he is not drowsy and willing to talk. LEGAL STATUS: FOLLOW-UP: Will follow Mental Status Exam - Vital signs Last Vital Signs Temp 97.4 F L 07/22/19 23:28 Pulse 89 07/22/19 23:28 Resp 18 07/22/19 23:28 BP 116/68 07/22/19 23:28 Pulse Ox 96 07/22/19 23:28
[2019-07-23] MEDS: QUEtiapine 200 MG TAB PO SCH (21:01)
[2019-07-24] MEDS: SODIUM CHLORIDE 0.9% 1000 ML 1,000 ML IV SCH (03:12)
[2019-07-24] MEDS: HEPARIN 5,000 UNIT/1 ML VIAL SUB-Q SCH ×2 (09:50→21:50)
[2019-07-24] MEDS: FLUoxetine 10 MG TAB PO SCH (09:51)
--- NOTE | 2019-07-24 15:09 | Progress Note ---
Assessment and Plan Assessment and plan: Patient is a 39 yo man with a history of bipolar and shizophrenia who presented to [facility] ED from home with auditory hallucinations telling himself to hurt himself. He told ED staff that he has been off his psychiatry medications for unknown amount of time and he admits to doing speed. He was anxious and was given IV ativan, now somnolent and gives no history to me. He is being admitted for Rhabdomyolysis. * Elevated CK * UA not indicative of UTI, UDS is positive for Amphetamines * CT abd/pelvis without contrast IMPRESSION: 1. No acute abnormality identified. Rhabdomyolysis: Status post isotonic IV fluids, patient has improved. IV fluids are discontinued on 07/24 Acute psychosis/schizoaffective disorder: Antipsychotic meds per mental health. Suicidal Ideation: Management per psychiatry Acute toxic encephalopathy due to Methamphetamines, resolved Schizophrenia: consult mental health Hypokalemia; repleted and resolved DVT ppx sq heparin Patient is medically optimized for transfer to psychiatric facility versus discharge home. Psychiatry to assist with discharge planning. History Interval history: Review of systems Constitutional: No fevers, no malaise, no joint pains CVS: No chest pain, no orthopnea, no pedal edema GI: No abdominal pain, no diarrhea, no vomiting, no constipation Respiratory: , no wheezing, no coughing Hospitalist Physical - Physical exam Narrative exam: General.: Appears well, no distress, nontoxic HEENT: Moist mucous membranes, extraocular muscles intact, no lymphadenopathy Neck: supple Cardiac: S1-S2 heard Lungs: clear to auscultation bilaterally Abdomen: soft , nontender, nondistended, bowel sounds positive Extremities: no edema clubbing or cyanosis Skin: no rash or lesions Neurologic: no gross focal deficits Psych: calm, and cooperative - Constitutional Vitals: Temp Pulse Resp BP Pulse Ox 97.3 F L 73 16 112/82 97 07/24/19 06:47 07/24/19 06:47 07/24/19 06:47 07/24/19 06:47 07/24/19 06:47 Results - Labs CBC & Chem 7: 07/23/19 04:24 07/23/19 04:24 Labs: Laboratory Last Values WBC 6.6 K/mm3 (4.5-11.0) 07/23/19 04:24 RBC 4.27 M/mm3 (3.65-5.03) 07/23/19 04:24 Hgb 13.5 gm/dl (11.8-15.2) 07/23/19 04:24 Hct 39.5 % (35.5-45.6) 07/23/19 04:24 MCV 93 fl (84-94) 07/23/19 04:24 MCH 32 pg (28-32) 07/23/19 04:24 MCHC 34 % (32-34) 07/23/19 04:24 RDW 13.3 % (13.2-15.2) 07/23/19 04:24 Plt Count 369 K/mm3 (140-440) 07/23/19 04:24 Lymph % (Auto) 38.0 % (13.4-35.0) H 07/23/19 04:24 [place] % (Auto) 5.8 % (0.0-7.3) 07/23/19 04:24 Eos % (Auto) 1.9 % (0.0-4.3) 07/23/19 04:24 Baso % (Auto) 0.6 % (0.0-1.8) 07/23/19 04:24 Lymph # 2.5 K/mm3 (1.2-5.4) 07/23/19 04:24 [place] # 0.4 K/mm3 (0.0-0.8) 07/23/19 04:24 Eos # 0.1 K/mm3 (0.0-0.4) 07/23/19 04:24 Baso # 0.0 K/mm3 (0.0-0.1) 07/23/19 04:24 Seg Neutrophils % 53.7 % (40.0-70.0) 07/23/19 04:24 Seg Neutrophils # 3.5 K/mm3 (1.8-7.7) 07/23/19 04:24 Sodium 144 mmol/L (137-145) 07/23/19 04:24 Potassium 3.9 mmol/L (3.6-5.0) D 07/23/19 04:24 Chloride 107.6 mmol/L (98-107) H 07/23/19 04:24 Carbon Dioxide 24 mmol/L (22-30) 07/23/19 04:24 Anion Gap 16 mmol/L 07/23/19 04:24 BUN 11 mg/dL (9-20) 07/23/19 04:24 Creatinine 0.6 mg/dL (0.8-1.5) L 07/23/19 04:24 Estimated GFR > 60 ml/min 07/23/19 04:24 BUN/Creatinine Ratio 18 % 07/23/19 04:24 Glucose 100 mg/dL (75-100) 07/23/19 04:24 Calcium 9.1 mg/dL (8.4-10.2) 07/23/19 04:24 Total Bilirubin 0.40 mg/dL (0.1-1.2) 07/22/19 07:24 AST 91 units/L (5-40) H 07/22/19 07:24 ALT 102 units/L (7-56) H 07/22/19 07:24 Alkaline Phosphatase 64 units/L (35-129) 07/22/19 07:24 Total Creatine Kinase 507 units/L (55-170) H 07/24/19 07:54 Total Protein 5.9 g/dL (6.3-8.2) L 07/22/19 07:24 Albumin 3.5 g/dL (3.9-5) L 07/22/19 07:24 Albumin/Globulin Ratio 1.5 % 07/22/19 07:24 Urine Color [place] (Yellow) 07/21/19 04:05 Urine Turbidity Slightly-cloudy (Clear) 07/21/19 04:05 Urine pH 6.0 (5.0-7.0) 07/21/19 04:05 Ur Specific [place] 1.023 (1.003-1.030) 07/21/19 04:05 Urine Protein 100 mg/dl mg/dL (Negative) 07/21/19 04:05 Urine Glucose (UA) Neg mg/dL (Negative) 07/21/19 04:05 Urine Ketones Tr mg/dL (Negative) 07/21/19 04:05 Urine Blood Neg (Negative) 07/21/19 04:05 Urine Nitrite Neg (Negative) 07/21/19 04:05 Urine Bilirubin Neg (Negative) 07/21/19 04:05 Urine Urobilinogen < 2.0 mg/dL (<2.0) 07/21/19 04:05 Ur Leukocyte Esterase Neg (Negative) 07/21/19 04:05 Urine WBC (Auto) 2.0 /HPF (0.0-6.0) 07/21/19 04:05 Urine RBC (Auto) 13.0 /HPF (0.0-6.0) 07/21/19 04:05 Urine Mucus 3+ /HPF 07/21/19 04:05 Salicylates < 0.3 mg/dL (2.8-20.0) L 07/21/19 04:09 Urine Opiates Screen Presumptive negative 07/21/19 04:05 Urine Methadone Screen Presumptive negative 07/21/19 04:05 Acetaminophen < 5.0 ug/mL (10.0-30.0) L 07/21/19 04:09 Ur Barbiturates Screen Presumptive negative 07/21/19 04:05 Ur Phencyclidine Scrn Presumptive negative 07/21/19 04:05 Ur Amphetamines Screen Presumptive positive 07/21/19 04:05 U Benzodiazepines Scrn Presumptive negative 07/21/19 04:05 [place] 0.1 mmol/L (0.0-1.2) 07/21/19 04:30 Urine Cocaine Screen Presumptive negative 07/21/19 04:05 U Marijuana (THC) Screen Presumptive negative 07/21/19 04:05 Drugs of Abuse Note Disclamer 07/21/19 04:05 Plasma/Serum Alcohol < 0.01 % (0-0.07) 07/21/19 04:09 Active Medications - Current Medications Current Medications: Generic Name Dose Route Start Last Admin Trade Name Freq PRN Reason Stop Dose Admin Acetaminophen 650 mg 07/21/19 13:35 07/22/19 23:18 Tylenol PO 650 mg Q6H PRN Administration Non Cardiac Pain or Temp>100.5 Doxepin HCl 10 mg 07/22/19 16:41 [place]qu[place] PO QHS PRN Insomnia Fluoxetine HCl 10 mg 07/22/19 14:00 07/24/19 09:51 Prozac PO 10 mg QDAY CELESTE Administration Heparin Sodium (Porcine) 5,000 unit 07/22/19 22:00 07/24/19 09:50 Heparin SUB-Q 5,000 unit Q12HR CELESTE Administration Lorazepam 1 mg 07/22/19 16:41 Ativan IV Q6H PRN Agitation Melatonin 5 mg 07/22/19 22:00 07/22/19 23:06 Melatonin PO 5 mg QHS PRN Administration Sleep Ondansetron HCl 4 mg 07/21/19 13:35 Zofran IV Q4H PRN Nausea And Vomiting Quetiapine Fumarate 200 mg 07/22/19 22:00 07/23/19 21:01 Seroquel PO 200 mg QHS CELESTE Administration
--- NOTE | 2019-07-24 16:13 | Progress Note ---
Subjective - Reason for Consult Consult date: 07/24/19 Reason for consult: psychiatric assessment - Chief Complaint Chief complaint: In my interview with the patient this morning, the patient in bed with eyes closed,easily aroused, patient is alert and oriented 3, the patient maintained minimal eye contact. The patient denies suicidal or homicidal ideation. Patient denies visual or auditory hallucinations. The patient reported that he is eating and sleeping well. The patient denies depressive symptoms. the patient is more alert today.No anxiety or irritability noted. Patient appeared to be responding well to medication management.patient responds to questions appropriately no cognitive impairment noted at this time. Review of Symptoms: Constitutional: Negative for weight loss ENT: Negative for stridor Respiratory: Negative for cough or hemoptysis All other systems reviewed and are negative MSE Appearance: Wearing appropriate clothing. Good hygiene Behavior: Pleasant and cooperative. Mood: "ok" Affect: irritable Thought Process: Goal directed Speech: low Thought Content Harmfulness Denies SI/HI Hallucinations: patient denies Delusions: none elicited Consciousness: alert. Cognition/Memory: normal. Insight/Judgment: Limited. RECOMMENDATIONS MEDICATIONS: continue current psychiatric medication Risks, benefits and alternatives of medications discussed with the patient, questions answered and consent obtained from patient. PSYCHOTHERAPY: Supportive psychotherapy provided MEDICAL: Per primary team DELIRIUM PRECAUTIONS: Please re-orient patient frequently, keep lights on during the day, and minimize benzodiazepines and opiates as these medications could worsen patient's confusion. 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 LEGAL STATUS: FOLLOW-UP: Will follow Mental Status Exam - Vital signs Last Vital Signs Temp 97.3 F L 07/24/19 06:47 Pulse 73 07/24/19 06:47 Resp 16 07/24/19 06:47 BP 112/82 07/24/19 06:47 Pulse Ox 97 07/24/19 06:47
[2019-07-24] MEDS: QUEtiapine 200 MG TAB PO SCH (21:51)
[2019-07-25 06:38] VITALS: BP 98/49
[2019-07-25] MEDS: FLUoxetine 10 MG TAB PO SCH (08:58)
[2019-07-25] MEDS: HEPARIN 5,000 UNIT/1 ML VIAL SUB-Q SCH (09:14)
--- NOTE | 2019-07-25 13:32 | Discharge Summary ---
Providers - Providers Date of Admission: 07/21/19 13:34 Attending physician: LENI MARTINEZ MD 07/21/19 13:46 Consult to Mental Health [CONS] Urgent Reason For Exam: psych [facility] Hospital course: Patient is a 39 yo man with a history of bipolar and shizophrenia who presented to [facility] ED from home with auditory hallucinations telling himself to hurt himself. He told ED staff that he has been off his psychiatry medications for unknown amount of time and he admits to doing speed. He was anxious and was given IV ativan, now somnolent and gives no history to me. He is being admitted for Rhabdomyolysis. * Elevated CK * UA not indicative of UTI, UDS is positive for Amphetamines * CT abd/pelvis without contrast IMPRESSION: 1. No acute abnormality identified. Rhabdomyolysis: Status post isotonic IV fluids, patient has improved. IV fluids are discontinued on 07/24 Acute psychosis/schizoaffective disorder: Antipsychotic meds per mental health. The patient is improved and was discharged home per psychiatry recommendation Suicidal Ideation: Management per psychiatry, resolved after being treated with medications. Acute toxic encephalopathy due to Methamphetamines, resolved, advised to stay off street drugs Schizophrenia: consult mental health Hypokalemia; repleted and resolved DVT ppx sq heparin Methamphetamine abuse; preventative health counseling performed for 17 minutes Tobacco abuse/dependence Smoking cessation counseling performed for 10 minutes, nicotine patches when necessary Disposition: DC-01 TO HOME OR SELFCARE Time spent for discharge: 35 minutes Core Measure Documentation - Palliative Care Palliative Care/ Comfort Measures: Not Applicable - Core Measures Any of the following diagnoses?: none Exam - Constitutional Vitals: Temp Pulse Resp BP Pulse Ox 97.3 F L 58 L 20 98/49 97 07/25/19 04:45 07/25/19 04:45 07/25/19 04:45 07/25/19 04:45 07/25/19 04:45 General appearance: Present: no acute distress, well-nourished - EENT Eyes: Present: PERRL ENT: hearing intact, clear oral mucosa - Neck Neck: Present: supple, normal ROM - Respiratory Respiratory effort: normal Respiratory: bilateral: CTA - Cardiovascular Heart Sounds: Present: S1 & S2. Absent: rub, click - Extremities Extremities: pulses symmetrical, No edema Peripheral Pulses: within normal limits - Abdominal General gastrointestinal: Present: soft, non-tender, non-distended, normal bowel sounds Male genitourinary: Present: normal - Integumentary Integumentary: Present: clear, warm, dry - Musculoskeletal Musculoskeletal: gait normal, strength equal bilaterally - Psychiatric Psychiatric: appropriate mood/affect, intact judgment & insight - Neurologic Neurologic: CNII-XII intact, moves all extremities Plan Follow up with: TORRES CHWALA MD [Primary Care Provider] - 7 Days Prescriptions: Melatonin [Melatonin 5MG TAB] 5 mg PO QHS PRN #30 tablet PRN Reason: Sleep QUEtiapine [SEROquel] 200 mg PO QHS #30 tablet Doxepin [SINEquan] 10 mg PO QHS PRN #30 capsule PRN Reason: Insomnia FLUoxetine [PROzac] 10 mg PO QDAY #30 tablet
== END 2019-07-25 15:30 | disposition home or self-care (01) | DRG 557 ==
LOC: ED 03:40 → 3A 13:34
PROVIDERS: ADMIT Internal Medicine; ATTEND Internal Medicine
DX: M62.82 Rhabdomyolysis (principal); G92 Toxic encephalopathy; R45.851 Suicidal ideations; E87.2 Acidosis; F29 Unspecified psychosis not due to a substance or known physiological condition; F31.9 Bipolar disorder, unspecified; T43.625A Adverse effect of amphetamines, initial encounter; F17.200 Nicotine dependence, unspecified, uncomplicated; E87.6 Hypokalemia; F25.9 Schizoaffective disorder, unspecified; G89.29 Other chronic pain; M54.9 Dorsalgia, unspecified; F14.90 Cocaine use, unspecified, uncomplicated; Y92.89 Other specified places as the place of occurrence of the external cause; Z71.6 Tobacco abuse counseling
CPT/HCPCS: 36415; 74176; 80048; 80053; 80178; 80307; 80320; 81001; 82550; 85025; 85027; 87116; 93005; 93010; 96374; 99406; G0378; G0480; J1630; J1644; J1885; J2060; J7030